=== PATIENT | male | born 1995 | race African-American/Black ===

== ENCOUNTER 2020-11-18 17:12 | Emergency (ER) | payer OTHER, SELFPAY ==
--- NOTE | ~2020-11-18 | XR_ITS ---
EXAMINATION: XR FINGER, LEFT CLINICAL INFORMATION: Laceration of second and third digits at distal phalanx COMPARISON: None TECHNIQUE: 3 views of the left 2nd and 3rd fingers. XR/XR finger LT min 2V FINDINGS AND IMPRESSION: Bones have normal alignment and joint spaces are maintained. No fracture or subluxation. No radiopaque foreign body. Soft tissue laceration of the index finger is noted lateral and distal to the distal phalanx. The underlying bone is intact. A smaller area of soft tissue laceration is noted at the lateral aspect of the distal third digit.
[2020-11-18 17:24] VITALS: BP 142/84; PULSE 70; RESP 18; TEMP 37.1; O2SAT 98; BMI 36.3
--- NOTE | 2020-11-18 18:02 | ED_ITS ---
HPI - Wound/Laceration General Chief Complaint: Wound/Laceration Stated Complaint: Finger injury Time Seen by Provider: 11/18/20 18:02 Source: patient Mode of arrival: ambulatory Limitations: no limitations History of Present Illness HPI narrative: 25-year-old male who is right-handed cut his left index finger and his left 3rd finger on a sharp knife at his work. Onset (ago): hour(s) (1) Place: work Patient tetanus UTD: Yes Context: accidental Associated symptoms: none Treatments prior to arrival: bandage Related Data Allergies Allergy/AdvReac Type Severity Reaction Status Date / Time No Known Allergies Allergy Verified 11/18/20 18:09 Review of Systems Constitutional: Constitutional: Denies body ache(s), Denies chills, Denies fatigue, Denies fever(s), Denies headache(s), Denies malaise and Denies weakness ENT: Denies vertigo, Denies dizziness, Denies headache(s) and Denies throat swelling Cardiovascular: Cardiovascular: Denies chest pain, Denies syncope, Denies leg edema, Denies lightheadedness, Denies Loss of Consciousness, Denies palpitations and Denies dyspnea Respiratory: Respiratory: Denies chest congestion, Denies cough and Denies dyspnea Musculoskeletal: Comments: Lacerations to right fingers Neurologic: Denies confusion, Denies vertigo, Denies dizziness, Denies syncope, Denies headache(s) and Denies weakness Psychiatric: Psychiatric: Denies anxiety, Denies confusion and Denies de pression Endocrine: Endocrine: Denies fatigue and Denies palpitations Allergic/Immunologic: Allergic/Immunologic: Denies throat swelling PMFSH Past Medical History Medical History (Updated 11/18/20 @ 19:28 by AGUEDA Zheng) Asthma Surgical History Hx of inguinal hernia surgery Social History Social History Advance Directives: No Advance Directives Information Provided: No Physical Exam Vital Signs: Vital Signs: Last Vital Signs Temp 98.8 F 11/18/20 17:24 Pulse 70 11/18/20 17:24 Resp 18 11/18/20 17:24 BP 142/84 H 11/18/20 17:24 Pulse Ox 98 11/18/20 17:24 Body Mass Index 36.3 Const: General: No confusion Nutritional Appearance: well nourished Orientation/consciousness: No confusion Limitations: no limitations Eyes: Pupils: Equal, round and reactive pupils present Neck: Neck: Yes full ROM, Yes no lymphadenopathy and Yes supple Resp: Effort & Inspection: normal respiratory effort and able to speak in complete sentences Auscultation: clear to auscultation bilaterally, no crackles, no rales, no rhonchi and no wheezes Cardio: Rate: regular rate Rhythm: regular rhythm Heart sounds: S1 normal heart sound present and S2 normal heart sound present Skin: Other: Laceration to distal left index and middle finger Neuro: General: No confusion Cranial nerves: Yes Equal, round and reactive pupils present Extrem: Left upper extremity: full ROM, normal capillary refill and hand Details: laceration 3rd digit Details: linear, actively bleeding, with motor nerve function intact and with sensation intact; Negative for not contaminated, 2nd digit Details: linear, actively bleeding, with motor nerve function intact and with sensation intact; Negative for not contaminated; No no cyanosis and no edema Psych: Appearance: grossly normal Affect: normal affect Attitude: coop erative Thought process: Normal thought process present Course Course Course Narrative: XR Bones have normal alignment and joint spaces are maintained. No fracture or subluxation. No radiopaque foreign body. Soft tissue laceration of the index finger is noted lateral and distal to the distal phalanx. The underlying bone is intact. A smaller area of soft tissue laceration is noted at the lateral aspect of the distal third digit. ? 25-year-old male presents for 2nd and 3rd fingertip lacerations on left hand. Left upper extremity has intact motor strength, radial pulse, sensation, range of motion of fingers. After extensive discussion with patient and attempted at Steri-Strips application, we sutured. Patient requested we try another method to avoid suturing. Three sutures left index finger to sutures middle finger. Nailbed involvement left index finger, left nail in place, as removing nail would cause more trauma. Counseled patient on wound care, infection precautions. Told patient to return for suture removal in 7 days. Procedures Laceration Laceration 1: Site: other (left first digit) Side (If applicable): left Size (cm): 2 Description: linear Depth: simple, single layer Local Anesthetic: lidocaine 1% Amount of anesthesia used (mL): 1 Pre-repair: wound explored, irrigated extensively and deep structures intact Skin layer closed with: vicryl Size (cm): 4-0 Number of sutures: 3 Technique: simple, interrupted Laceration 2: Site: other (left third finger tip) Side (If applicable): left Size (cm): 1.5 Description: linear Depth: simple, single layer Local Anesthetic: lidocaine 1% Amount of anesthesia used (mL): 1 Pre-repair: wound explored and irrigated extensively Skin layer closed with: nylon Size (cm): 4-0 Number of sutures: 2 Technique: simple, interrupted Discharge Plan Discharge Clinical Impression: Laceration Patient Disposition: Home, Self-Care Instructions: Laceration (ED) Additional Instructions: Please leave the dressing in place until tomorrow night. After that, take it off, washed with soap and water, pat dry, apply bacitracin, reply a nonstick dressing. Do the same procedure over the next 5 days. If redness swelling or warmth developed, please return to be seen as these are signs of infection. Please keep your hand covered at work, keep the dressing dry and clean. You have 3 stitches in your left index finger and 2 stitches in your left middle finger. You must get these removed in 7 days, which is November 25
[2020-11-18] MEDS: Acetaminophen 325 MG TABLET 650 MG PO (18:38)
[2020-11-18] MEDS: Lidocaine HCl 1 % 20 ML VIAL 10 ML INFILTRATI (20:01)
== END 2020-11-18 20:15 | disposition home or self-care (01) ==
PROVIDERS: Emergency Provider Emergency Medicine; PCP Hospitalist
DX: S61.211A Laceration without foreign body of left index finger without damage to nail, initial encounter (principal); S61.213A Laceration without foreign body of left middle finger without damage to nail, initial encounter; M79.642 Pain in left hand; W26.0XXA Contact with knife, initial encounter; Y93.9 Activity, unspecified; Y92.9 Unspecified place or not applicable; Y99.0 Civilian activity done for income or pay
CPT/HCPCS: 12002; 73140; 99284

== ENCOUNTER 2020-11-27 10:51 | Emergency (ER) | payer SELFPAY ==
[2020-11-27 11:15] VITALS: BP 128/64; PULSE 57; RESP 18; TEMP 36.8; O2SAT 100; BMI 35.6
--- NOTE | 2020-11-27 12:24 | ED.SKABFB ---
HPI - Skin/Abscess/Foreign Bdy General Chief complaint: Skin/Abscess/Foreign Body Stated complaint: suture removal Time Seen by Provider: 11/27/20 12:23 Source: patient Mode of arrival: ambulatory Limitations: no limitations History of Present Illness HPI narrative: 25-year-old male presents to the ER for suture removal. He had sutures placed on 11/18 to the tip of his left index finger and left 3rd finger after he cut himself with a knife at work. 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 He reports adequate wound healing with no issues. No fever no chills, no redness, no numbness. MD complaint: laceration Onset (ago): day(s) Tetanus up to date: yes Location: LLE Severity: mild Severity scale (1-10): 3 Quality: aching Pain Consistency: intermittent Relieving factors: none Exacerbating factors: none Context: none Associated symptoms: denies other symptoms Treatments prior to arrival: bandages Related Data Allergies Allergy/AdvReac Type Severity Reaction Status Date / Time No Known Allergies Allergy Verified 11/27/20 11:15 Review of Systems Review of Systems: Constitutional: No Fever, No Chills Gastrointestinal: No Nausea, No Vomiting Musculoskeletal: No joint pain, No Myalgias Skin: + Skin Lesions, No rash Neuro: No Weakness, No Numbness Heme/Lymph: No Bruising, No Lymphadenopathy PMFSH Past Medical History Medical History (Updated 11/27/20 @ 12:25 by AGUEDA Sanchez) Asthma Surgical History Hx of inguinal hernia surgery Social History Social History Advance Directives: No Physical Exam Vital Signs: Vital Signs: Last Vital Signs Temp 98.3 F 11/27/20 11:15 Pulse 57 11/27/20 11:15 Resp 18 11/27/20 11:15 BP 128/64 11/27/20 11:15 Pulse Ox 100 11/27/20 11:15 Body Mass Index 35.6 Appearance: Alert. Oriented X3. No acute distress. HEENT: normal inspection CVS: Normal heart rate and rhythm. Pulses normal. Respiratory: No respiratory distress. Skin: Skin warm and dry. Normal skin color. Normal skin turgor. No rashes. Extremities: distal tips of left index and 3rd finger with well-healing lacerations. The index finger has nail involvement. There does not appear to be signs of infection. Is skin is slightly macerated from moisture. No drainage or warmth. He has full range of motion. Cap refill is adequate and sensation is intact. Neuro: Oriented X 3. No motor deficit. No sensory deficit. Course Course Course Narrative: 25-year-old male presents to the ER for suture removal. Sutures removed and patient tolerated the procedure well and wounds are healing adequately Steri-Strips placed for reinforcement wound care discussed. Patient stable for discharge home. Critical Care Time Critical Care Time Critical Care Time: No Discharge Plan Discharge Clinical Impression: Visit for suture removal Patient Disposition: Home, Self-Care Instructions: Stitches Removal (ED) Additional Instructions: Allow the Steri-Strips to fall off on their own, do not peel them off. Do not submerge your hand in water, but you can briefly wash with soap and water and then pat dry. Use bacitracin 2 times a day. Keep wound clean and covered. Allow time to open air throughout the day. If your finger tips are white means they are too moist. Follow up with your doctor as needed. If your wound reopens or if you develop any signs or symptoms of infection come back to the ER for further evaluation. Interventions: ED Discharge Assessment Last Done: 11/27/20 12:58 Discharge Date/Time: 11/27/20 12:58
== END 2020-11-27 12:58 | disposition home or self-care (01) ==
PROVIDERS: Emergency Provider Emergency Medicine; PCP Hospitalist
DX: Z48.02 Encounter for removal of sutures (principal)
CPT/HCPCS: 99282; 99283